=== PATIENT | male | born 1975 | race African-American/Black ===

== ENCOUNTER → 2021-12-23 | Outpatient (CLI) | payer BC ==
[~2021-12-23] MED LIST: ALPR1TAB2 PO; AMLO10TA4 PO; ASP325TEC PO; ATOR10TA66 PO; COLE625T9 PO; HYDR50TA3 PO; LISI40TA PO; METF-380 PO; METO-272 PO; OLME20TA21 PO; PIOG45TA PO
[2021-12-23 13:39] VITALS: BP 134/86
== END ==
LOC: CARD 12:42
PROVIDERS: ATTEND Internal Medicine Cardiovascular Disease
DX: I25.10 Atherosclerotic heart disease of native coronary artery without angina pectoris (principal); I11.9 Hypertensive heart disease without heart failure
CPT/HCPCS: C8929; C8930; 93306